=== PATIENT | male | born 1970 | race Native Hawaiian/Other Pacific Islander ===

== ENCOUNTER 2016-04-09 18:53 | Emergency (ER) | payer OTHER ==
[~2016-04-09] VITALS: Ht 170.2 cm; Wt 68.0 kg
== END 2016-04-09 20:18 | disposition home or self-care (01) ==
LOC: ED 18:53
DX: J44.1 Chronic obstructive pulmonary disease with (acute) exacerbation (principal)
CPT/HCPCS: 96372; 99282; J2930